=== PATIENT | male | born 1935 | race Caucasian/White ===

== ENCOUNTER → 2021-03-19 | Outpatient (CLI) | payer OTHER, MEDICARE | LOC: SJCVC 12:52 | PROVIDERS: ATTEND Internal Medicine | DX: R94.31 Abnormal electrocardiogram [ECG] [EKG] (principal); I49.8 Other specified cardiac arrhythmias; I25.10 Atherosclerotic heart disease of native coronary artery without angina pectoris; I65.23 Occlusion and stenosis of bilateral carotid arteries; E78.5 Hyperlipidemia, unspecified; I10 Essential (primary) hypertension; K21.9 Gastro-esophageal reflux disease without esophagitis; I71.6 Thoracoabdominal aortic aneurysm, without rupture; E78.00 Pure hypercholesterolemia, unspecified; Z95.2 Presence of prosthetic heart valve; Z87.891 Personal history of nicotine dependence; Z88.1 Allergy status to other antibiotic agents; Z79.899 Other long term (current) drug therapy; Z79.82 Long term (current) use of aspirin ==

== ENCOUNTER 2021-07-26 14:32 | Inpatient (IN) | payer OTHER, MEDICARE ==
[~2021-07-26] VITALS: Ht 170.2 cm; Wt 77.5 kg
[2021-07-26] VITALS (7 sets, daily range): BP systolic 129–148; BP diastolic 63–96
[2021-07-26 15:25] LABS: ABSOLUTE NEUTROPHILS 4.2 thou/uL (1.4-8.2); EOSINOPHILS 5.6 % (0.0-3.0); HEMATOCRIT 42.8 % (42.0-52.0); HEMOGLOBIN 14.2 gm/dL (14.0-18.0); LYMPHOCYTES 17.8 % (24.0-44.0); MCH 29.9 pg (26.0-34.0); MCHC 33.2 g/dL (28.0-37.0); MCV 90.2 fL (80.0-100.0); MONOCYTES 10.3 % (1.0-8.0); PLATELET COUNT 190 thou/uL (150-400); POLYS 65.3 % (36.0-66.0); RBC 4.75 mil/uL (4.50-6.00); WBC 6.5 thou/uL (4.0-11.0)
[2021-07-26 15:34] LABS: CALCIUM 9.3 mg/dL (8.5-10.1); CREATININE 1.5 mg/dL (0.7-1.3)
[2021-07-26 15:42] LABS: TOTAL BILIRUBIN 1.3 mg/dL (0.2-1.0); TOTAL PROTEIN 8.3 g/dL (6.4-8.2)
[2021-07-26] MEDS ORDERED: COZAAR 50 MG TA50 M1 PO (16:21)
[2021-07-26] MEDS ORDERED: LIPITOR40 MG PO (16:21)
[2021-07-26] MEDS ORDERED: KAPSPARGO SPRIN50 MG PO (16:21)
[2021-07-26] MEDS ORDERED: NORVASC10 MG PO (16:21)
[2021-07-27] VITALS (10 sets, daily range): BP systolic 92–156; BP diastolic 51–94
--- NOTE | 2021-07-27 04:30 | NUR ---
ADMITTED THIS PATIENT FROM THE EMERGENCY AROUND 2043H.ON ROOM AIR BREATHING SPONTANEOUSLY.NOT IN PAIN OR DISTRESS.HOOKED TO MONITOR SHOWING ATRIAL FIBRAILLATION, RATE IS 110-130'S, METOPROLOL DOSE WAS GIVEN.INFORMED WAISTBAND SETTER THAT PATIENT IS STILL ON AFIB AFTER GIVING METOPROLOL, RATE IS 90-115BPM, SHE TOLD TO OBSERVE FOR NOW.AT 0300H, WAISTBAND SETTER ORDERED TO START ON CARDIZEM DRIP PATIENT IS STILL ON AFIB WITH RAT STILL RUNING TO 120'S.CARDIZEM STARTED ORDERED.MONITORED VITAS ACCORDINGLY AND DRIP ADJUSTED.ALL NEEDS ATTENDED.FOR CONTINOUS MONITORING.
[2021-07-27 05:16] LABS: HEMATOCRIT 39.6 % (42.0-52.0); HEMOGLOBIN 13.3 gm/dL (14.0-18.0); MCH 30.3 pg (26.0-34.0); MCHC 33.6 g/dL (28.0-37.0); MCV 90.1 fL (80.0-100.0); RBC 4.4 mil/uL (4.50-6.00); RDW 13.7 % (10.5-14.5); WBC 7.2 thou/uL (4.0-11.0)
[2021-07-27 05:45] LABS: CALCIUM 8.5 mg/dL (8.5-10.1); CREATININE 1.3 mg/dL (0.7-1.3); POTASSIUM 3.5 mmol/L (3.5-5.1)
--- NOTE | 2021-07-27 09:44 | EKG ---
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 : 1935 Requested By: Tenzin Lafleur Order Number: [id number] MD: Matt Farley Measurements Intervals [place] Rate: 108 P: ME: QRS: 39 QRSD: 117 T: 267 QT: 360 QTc: 483 Interpretive Statements Atrial fibrillation Incomplete left bundle branch block Borderline low voltage, extremity leads Baseline wander in lead(s) V1 Compared to ECG 06/11/2002 06:11:50 Left bundle-branch block now present Sinus rhythm no longer present Inferior Q waves no longer present Q waves no longer present Electronically Signed On 07-27-2021 9:44:24 CDT by Matt Farley [email or web address] <ELECTRONICALLY SIGNED> By: Matt Farley MD, FAC 07/27/21 0944 1446 1446 Matt Farley MD, [facility] /EPI
--- NOTE | 2021-07-27 17:44 | NUR ---
ASSUMED CARE SHIFT CHANGE. VSS DENIES PAIN. O2 SAT WNL RA. DILT GTT DC'D THIS AM, PO INITITATED. PT REMAINS AFIB CONTROLLED RATES ON TELE. PT UP WITH PHYS THERAPY/OT STEPHEN WELL. FAMILY AT BEDSIDE UPDATED ON POC. ECHO THIS SHIFT REFER TO RESULTS. PLAN FOR STRESS TEST THURSDAY. PT DENIES NEEDS CURRENTLY. CONT POC, WILL PASS REPORT.
[2021-07-28 03:46] LABS: ABSOLUTE NEUTROPHILS 4.3 thou/uL (1.4-8.2); BASOPHILS 0.3 % (0.0-2.0); EOSINOPHILS 6.2 % (0.0-3.0); HEMATOCRIT 37.8 % (42.0-52.0); HEMOGLOBIN 12.7 gm/dL (14.0-18.0); LYMPHOCYTES 20.6 % (24.0-44.0); MCH 30.2 pg (26.0-34.0); MCHC 33.6 g/dL (28.0-37.0); MCV 90.1 fL (80.0-100.0); MONOCYTES 10.3 % (1.0-8.0); PLATELET COUNT 163 thou/uL (150-400); POLYS 62.6 % (36.0-66.0); RDW 13.4 % (10.5-14.5); WBC 6.8 thou/uL (4.0-11.0)
[2021-07-28 04:36] VITALS: BP 116/54
[2021-07-28 04:38] LABS: CALCIUM 8.5 mg/dL (8.5-10.1); CREATININE 1.4 mg/dL (0.7-1.3); MAGNESIUM 1.7 mg/dL (1.8-2.4); PHOSPHORUS 3.3 mg/dL (2.5-4.9); POTASSIUM 3.7 mmol/L (3.5-5.1); TOTAL BILIRUBIN 1.2 mg/dL (0.2-1.0)
--- NOTE | 2021-07-28 04:46 | NUR ---
RECEIVED PATIENT AT 1900H, SIMONA TIS ALERT AND OREINTEDX4.ON ROOM AIR BREATHING SPONTANEOUSLY.NOT IN PAIN OR DOSITRESS.STILL AFIB PER MONITOR , RATE IS CONTROLLED.ALL NEEDS ATTENDED.FOR STRESS ON THURSDAY.
[2021-07-28 07:50] VITALS: BP 108/76
--- NOTE | 2021-07-28 08:11 | 2DMMODE ---
[facility] [place] [address] 2 D/M-MODE ECHOCARDIOGRAM Name: JENA-PAUL REILLY CASEY Room #: 208-P ADM IN M.R.#: [id number] Admission: 07/26/21 Attend Phys: Tenzin Lafleur MD Discharge: Date of : 35 Report #: [id number] THIS REPORT FOR: cc: Ranjeet Winston MD, Matthew S. MD Santiago, Patrick MD [facility] ~ APPROVED REPORT Study performed: 07/27/2021 10:26:03 EXAM: Comprehensive 2D, Doppler, and color-flow Echocardiogram Patient Location: In-Patient Room #: 208 BSA: 1.89 HR: 115 bpm BP: 142/85 mmHg Rhythm: Tachycardia Other Information Study Quality: Adequate Risk Factors: Cardiac Risk Factors: HTN Indications Congestive Heart Failure Atrial Fibrillation Dyspnea CAD Hypertension/HDD Edema 2D Dimensions IVSd: 8.75 (7-11mm) LVOT Diam: 20.78 (18-24mm) LVDd: 48.36 mm PWd: 10.54 (7-11mm) Ascending Ao: 26.88 (22-36mm) LVDs: 32.38 (25-40mm) Left Atrium: 47.50 (27-40mm) Aortic Root: 27.59 mm LV Single Plane 4CH: 62.62 % Volumes Left Atrial Volume (Systole) [facility] [address] [place] [address] 2 D/M-MODE ECHOCARDIOGRAM Name: JEAN-PAUL REILLY CASEY Room #: 208-P ADM IN M.R.#: [id number] Admission: 07/26/21 Attend Phys: Tenzin Lafleur MD Discharge: Date of : 35 Report #: [id number] Single Plane 4CH: 71.45 mL Single Plane 2CH: 84.51 mL Biplane LA Volume: 87.00 mL LA ESV Index: 44.00 mL/m2 Aortic Valve AoV Peak Frandy.: 2.54 m/s AO Peak Gr.: 25.73 mmHg LVOT Max P.94 mmHg AO Mean Gr.: 13.86 mmHg LVOT Mean P.98 mmHg AO V2 Mean: 1.75 m/s LVOT Max V: 0.69 m/s AO V2 VTI: 46.70 cm LVOT Mean V: 0.44 m/s CHINYERE (VTI): 1.08 cm2 LVOT V1 VTI: 14.92 cm CHINYERE Vmax: 0.93 cm2 SV (LVOT): 50.56 mL Pulmonary Valve PV Peak Frandy.: 1.21 m/s PV Peak Gr.: 6.25 mmHg Tricuspid Valve TR Peak Frandy.: 2.68 m/s RAP Estimate: 15.00 mmHg TR Peak Gr.: 28.65 mmHg RVSP: 44.00 mmHg Left Ventricle The left ventricle is normal size. There is normal LV segmental wall motion. There is normal left ventricular wall thickness. The left ventricular systolic function is normal. The left ventricular ejection fraction is within the normal range. LVEF is 50-55%. Severe diastolic dysfunction is present (restrictive filling). Right Ventricle Right ventricle is dilated. Right ventricle is hypokinetic. Atria Left atrium is dilated. The thickening of interatrial septum suggests lipomatous hypertrophy. Right atrium is dilated. Aortic Valve The aortic valve is normal in structure. AVR No aortic regurgitation is present. There is no aortic valvular stenosis. Mitral Valve The mitral valve is normal in structure. Mild to moderate mitral regurgitation. No evidence of mitral valve stenosis. Tricuspid Valve The tricuspid valve is normal in structure. Moderate tricuspid regurgitation. PAP [address] [address] 2 D/M-MODE ECHOCARDIOGRAM Name: JEAN-PAUL REILLY [facility] Room #: 208-P [facility] IN ..#: [id number] Admission: 07/26/21 Attend Phys: Tenzin Lafleur MD Discharge: Date of : 35 Report #: [id number] Pulmonic Valve The pulmonary valve is normal in structure. Trace to mild pulmonic regurgitation. Great Vessels The aortic root is normal in size. IVC is dilated and collapses <50% with inspiration. Pericardium There is no pericardial effusion. <Conclusion> Normal left ventricular size/wall thickness Ejection fraction 50-55% Right ventricle mildly dilated/hypokinetic Moderate biatrial enlargement Aortic valve sclerosis without stenosis Mitral annular calcification Mild to moderate mitral valve insufficiency Mild tricuspid valve insufficiency Pulmonary systolic pressure estimated 44 mmHg No pericardial effusion Normal aortic root size Study performed in atrial fibrillation <ELECTRONICALLY SIGNED> By: Matt Farley MD, FACC 07/28/21809 9 9 Matt Farley MD, FACC /INF
[2021-07-28 11:55] VITALS: BP 128/63
[2021-07-28 16:15] VITALS: BP 122/68
--- NOTE | 2021-07-28 16:50 | NUR ---
PT HAD SON AT BEDSIDE MOST OF THE DAY. PT STATED HE HAD 1 BOWEL MOVEMENT THIS AM, NOT SEEN BY NURSING STAFF. PT REMAINED IN A-FIB THROUGHOUT RATE CONTROLLED. PT REMAINED PAIN FREE WITHOUT INTERVENTION.
[2021-07-28 19:55] VITALS: BP 149/81
[2021-07-29 04:45] VITALS: BP 132/72
--- NOTE | 2021-07-29 05:16 | NUR ---
PT REMAIN ALERT AND ORIENT TIMES FOUR. AFIB PER MONITOR. VSS, AFEBRILE. DENIES PAIN. NPO FOR STRESS TEST THIS AM. GOES BY "[facility]". [facility] GOALS. WILL CONTINUE TO MONITOR.
[2021-07-29 08:00] VITALS: BP 152/41
--- NOTE | 2021-07-29 09:24 | TEE ---
[facility] [place] [address] TRANSESOPHAGEAL ECHOCARDIOGRAM Name: JEAN-PAUL REILLY CASEY Room #: 208-P ADM IN M.R.#: [id number] Admission: 07/26/21 Attend Phys: Tenzin Lafleur MD Discharge: Date of : 35 Report #: [id number] THIS REPORT FOR: cc: Ranjeet Winston MD, Matthew S. MD Lundgren, Craig H. MD [facility] ~ APPROVED REPORT Study performed: 07/29/2021 08:02:38 EXAM: Transesophageal Echocardiogram with Doppler and Cardioversion Patient Location: In-Patient Room #: 208 Status: routine BSA: 1.89 HR: 125 bpm BP: 130/91 mmHg Rhythm: Atrial Fibrillation Other Information Study Quality: Good Indications Atrial Fibrillation Echo Enhancing Agent Indication: Rule out Shunt Agent(s) / Amount(s) Used: Agitated Saline 7 cc Procedure After obtaining informed consent, patient underwent transesophageal echo in the [employer]. Type of Sedation : Conscious Sedation Sedation was administered by Nurse. Sedation start time: 819 Case end Time: 834 Sedation was achieved intravenously with: Versed (4mg) Fentanyl (50mcg) Transesophageal probe was inserted and advanced into esophagus without difficulty by Darryl Plaza MD. Echo enhancement indication: R/O Septal defect. Echo enhancement agent administered: Agitated Saline The TONY was performed without complications. Synchronized Cardioversion acheived with 120 Joules after 1 [facility] [address] [place] [address] TRANSESOPHAGEAL ECHOCARDIOGRAM Name: JEAN-PAUL REILLY CASEY Room #: 208-P ADM IN ..#: [id number] Admission: 07/26/21 Attend Phys: Tenzin Lafleur MD Discharge: Date of : 35 Report #: [id number] attempt(s). Rhythm following Synchronized Cardioversion: Normal Sinus Rhythm Throughout the procedure, the blood pressure, pulse oximetry, cardiac rhythm, and rate were monitored. The patient tolerated the procedure without adverse effects. Recovery from conscious sedation was uneventful and vital signs were stable. Left Ventricle The left ventricle is normal size. There is normal LV segmental wall motion. There is normal left ventricular wall thickness. The left ventricular systolic function is normal. The left ventricular ejection fraction is within the normal range. LVEF is 55%. Right Ventricle The right ventricle is normal size. The right ventricular systolic function is normal. Atria Left atrium is dilated. No thrombus is visualized in the left atrium or appendage. No shunting by contrast bubble injection Right atrium is dilated. Aortic Valve Bioprosthetic aortic valve is present. No aortic regurgitation is present. There is no aortic valvular stenosis. Mitral Valve The mitral valve is normal in structure. Moderate mitral regurgitation. No evidence of mitral valve stenosis. Tricuspid Valve The tricuspid valve is normal in structure. Mild tricuspid regurgitation. Pulmonic Valve The pulmonary valve is normal in structure. There is no pulmonic valvular regurgitation. Great Vessels The aortic root is normal in size. 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 Pericardium [facility] [address] [place] [address] TRANSESOPHAGEAL ECHOCARDIOGRAM Name: REILLYJEAN-PAUL CASEY Room #: 208-P [facility] IN .R.#: [id number] Admission: 07/26/21 Attend Phys: Tenzin Lafleur MD Discharge: Date of : 35 Report #: [id number] There is no pericardial effusion. <Conclusion> The left ventricular systolic function is normal. There is normal LV segmental wall motion. LVEF is 55%. Both atria are mildly dilated. No thrombus in the left atrium or left atrial appendage. No shunting by contrast bubble injection. Bioprosthetic aortic valve is present. No aortic regurgitation or stenosis The mitral valve is normal in structure. Moderate mitral regurgitation. Bioprosthetic aortic valve is present. No aortic regurgitation or stenosis Moderate to severe bulky atherosclerosis in the asending aorta and descending thoracic aorta There is no pericardial effusion. Successful cardioversion of atrial fibrillation to sinus rhythm following a single 150 J biphasic synchronous shock. <ELECTRONICALLY SIGNED> By: Darryl Plaza MD, [facility] 07/29/21922 2 2 Darryl Plaza MD, FACC /INF
--- NOTE | 2021-07-29 09:58 | NUR ---
0945: TRANSFER BACK TO 208. PT FULLY ALERT AND AWAKE. VSS. REPORT TO PATRIC LOVENOX GIVEN AT 0920 DOCUMENTED. 250 NS INFUSED AND DC'D
--- NOTE | 2021-07-29 11:51 | EKG ---
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 : 1935 Requested By: Darryl Plaza Order Number: [id number] MD: Matt Farley Measurements Intervals [place] Rate: 74 P: 57 [place]: 194 QRS: 39 QRSD: 119 T: 235 QT: 397 QTc: 441 Interpretive Statements Sinus rhythm Nonspecific intraventricular conduction delay Nonspecific T abnormalities, lateral leads Compared to ECG 07/26/2021 14:46:14 Intraventricular conduction delay now present T-wave abnormality now present Atrial fibrillation no longer present Left bundle-branch block no longer present Electronically Signed On 07-29-2021 11:51:49 CDT by Matt Farley [email or web address] <ELECTRONICALLY SIGNED> By: Matt Farley MD, FAC 07/29/21 1151 6 6 Matt Farley MD, [facility] /EPI
--- NOTE | 2021-07-29 12:01 | NUR ---
Case opened to follow for dc planning needs. Pt is a&ox4 and was cardioverted this morning. He indicates that he is feeling beter and having stress test later today. He is indep with gait and adl's at home. He lives alone and manages all of his IADL's, errands and appointments. He drives. His son Danilo is his emergency contact and dpoa if needed. He denies any dc needs or concerns and is hoping to go home tomorrow. Pcp is Dr. Deonte Winston. Cm role introduced. Will follow along should dc needs arise.
[2021-07-29 15:35] VITALS: BP 143/85
--- NOTE | 2021-07-29 16:22 | NUR ---
PT WAS CARDIOVERTED, AND STRESS TEST COMPLETE. WORKED WITH PT/OT. PT TO BE DC HOME. AFEBRILE, ADEQUATE UOP, NO BM, APPROPRIATE APPETITE. PT HAS BEEN THOUROUGHLY UPDATED AND EDUCATED ON PT CONDITION AND POC. PT PROGRESSED TOWARDS POC.
[2021-07-29] MEDS ORDERED: KLOR-CON 10 ER10 MEQ PO (16:38)
[2021-07-29] MEDS ORDERED: PACERONE 200 M200 M1 PO (16:38)
[2021-07-29] MEDS ORDERED: DEMADEX20 MG PO (16:38)
[2021-07-29] MEDS ORDERED: METOPROLOL TART25 MG PO (16:38)
[2021-07-29] MEDS ORDERED: ELIQUIS2.5 MG PO (16:38)
[2021-07-29 17:14] VITALS: BP 143/85
== END 2021-07-29 19:00 | disposition home or self-care (01) | DRG 291 ==
LOC: ER 14:32 → EROBS 17:13 → 2N 17:13
PROVIDERS: Emergency Medicine; Internal Medicine; ADMIT Hospitalist; ATTEND Hospitalist
PROC: 5A2204Z Restoration of Cardiac Rhythm, Single (ICD-10-PCS; principal; 2021-07-29)
PROC: B24BZZ4 Ultrasonography of Heart with Aorta, Transesophageal (ICD-10-PCS; principal; 2021-07-29)
DX: I13.0 Hypertensive heart and chronic kidney disease with heart failure and stage 1 through stage 4 chronic kidney disease, or unspecified chronic kidney disease (principal); I50.33 Acute on chronic diastolic (congestive) heart failure; N17.9 Acute kidney failure, unspecified; I48.91 Unspecified atrial fibrillation; Z20.822 Contact with and (suspected) exposure to COVID-19; I25.10 Atherosclerotic heart disease of native coronary artery without angina pectoris; E78.5 Hyperlipidemia, unspecified; I71.2 Thoracic aortic aneurysm, without rupture; I73.9 Peripheral vascular disease, unspecified; E83.42 Hypomagnesemia; N18.30 Chronic kidney disease, stage 3 unspecified; I08.0 Rheumatic disorders of both mitral and aortic valves; I27.20 Pulmonary hypertension, unspecified; Z60.2 Problems related to living alone; Z79.899 Other long term (current) drug therapy; Z95.1 Presence of aortocoronary bypass graft; Z85.46 Personal history of malignant neoplasm of prostate; Z82.49 Family history of ischemic heart disease and other diseases of the circulatory system; Z87.891 Personal history of nicotine dependence; Z95.2 Presence of prosthetic heart valve
CPT/HCPCS: 10081

== ENCOUNTER → 2021-09-09 | Outpatient (CLI) | payer OTHER, MEDICARE ==
[~2021-09-09] MED LIST: COZAAR 50 MG TA50 M1 PO; DEMADEX20 MG PO; ELIQUIS2.5 MG PO; KAPSPARGO SPRIN50 MG PO; KLOR-CON 10 ER10 MEQ PO; LIPITOR40 MG PO; METOPROLOL TART25 MG PO; NORVASC10 MG PO; PACERONE 200 M200 M1 PO
== END ==
LOC: SJCVC 14:54
PROVIDERS: ATTEND Internal Medicine
DX: R94.31 Abnormal electrocardiogram [ECG] [EKG] (principal); R00.1 Bradycardia, unspecified; I11.0 Hypertensive heart disease with heart failure; I50.30 Unspecified diastolic (congestive) heart failure; I25.10 Atherosclerotic heart disease of native coronary artery without angina pectoris; I48.91 Unspecified atrial fibrillation; I71.6 Thoracoabdominal aortic aneurysm, without rupture; K21.9 Gastro-esophageal reflux disease without esophagitis; E78.5 Hyperlipidemia, unspecified; E78.00 Pure hypercholesterolemia, unspecified; I71.2 Thoracic aortic aneurysm, without rupture; Z95.2 Presence of prosthetic heart valve; Z88.2 Allergy status to sulfonamides; Z79.899 Other long term (current) drug therapy; Z87.891 Personal history of nicotine dependence